=== PATIENT | female | born 1955 | race Caucasian/White ===

== ENCOUNTER 2016-05-29 14:25 | Outpatient (CLI) | payer OTHER | END 2016-05-29 14:26 | disposition home or self-care (01) | DX: R63.4 Abnormal weight loss (principal); R53.1 Weakness; R91.1 Solitary pulmonary nodule ==

== ENCOUNTER 2017-11-19 14:57 | Outpatient (CLI) | payer OTHER ==
--- NOTE | 2017-11-19 15:33 | XRAY Report ---
Reason: FOOT PAIN,LEFT Procedure Date: 11/19/2017 Accession Number: [id number] / [id number] Procedure: XR - Foot 3 View LT CPT Code: FULL RESULT: EXAM: LEFT FOOT RADIOGRAPHY EXAM DATE: 11/19/2017 03:16 PM. CLINICAL HISTORY: Foot pain, left. COMPARISON: 06/28/2014, radiographs of the contralateral foot for comparison. TECHNIQUE: 3 views. FINDINGS: There is partial fusion of the second and third metatarsals with the medial and middle cuneiforms respectively. This has resulted in pseudoarticulation in a fracture of the proximal second metatarsal with a sclerotic line suggestive of subacute nature. A fracture through the base of the third metatarsal appears acute. Qualitatively osteopenic. IMPRESSION: Fractures through at least the base of the second and third metatarsal in the setting of partial fusion and global osteopenia. [facility]
== END 2017-11-19 14:58 | disposition home or self-care (01) ==
LOC: DI 14:57
PROVIDERS: ATTEND Physician Assistant Medical
DX: S92.322A Displaced fracture of second metatarsal bone, left foot, initial encounter for closed fracture (principal); S92.332A Displaced fracture of third metatarsal bone, left foot, initial encounter for closed fracture; M85.872 Other specified disorders of bone density and structure, left ankle and foot

== ENCOUNTER 2017-11-27 13:06 | Outpatient (CLI) | payer OTHER ==
--- NOTE | 2017-11-28 09:33 | CT Report ---
Reason: PAIN IN LEFT FOOT Procedure Date: 11/27/2017 Accession Number: [id number] / [id number] Procedure: CT - Lower Extremity Left W/O CPT Code: FULL RESULT: EXAM: LEFT FOOT CT WITHOUT CONTRAST EXAM DATE: 11/27/2017 01:48 PM. CLINICAL HISTORY: Left foot fracture and pain. COMPARISON: FOOT 3 VIEW LT 11/19/2017. TECHNIQUE: Thin-section axial images were acquired of the foot without contrast. Post-processing: Coronal and sagittal reformats. Other: None. In accordance with CT protocol optimization, one or more of the following dose reduction techniques were utilized for this exam: automated exposure control, adjustment of mA and/or KV based on patient size, or use of iterative reconstructive technique. FINDINGS: Bones: There is moderate generalized osteopenia. There are fractures of the bases of the first, second, third and fourth metatarsals with intra-articular extension and no appreciable dislocation or subluxation. The Lisfranc joint is still normally aligned. There is no appreciable fracture of the cuneiforms, cuboid or navicular. The talus and calcaneum are intact. Joints: The joint spaces are preserved. No calcified loose bodies. No large effusion. Musculature: Normal. No fatty atrophy. Other: There is extensive edema of the midfoot and forefoot. IMPRESSION: 1. Moderate generalized osteopenia. 2. Fractures of the bases of the first, second, third and fourth metatarsals with intra-articular extension and no dislocation or subluxation. [facility]
== END 2017-11-27 13:07 | disposition home or self-care (01) ==
LOC: DI 13:06
PROVIDERS: ATTEND Orthopaedic Surgery Foot and Ankle Surgery
DX: S92.312A Displaced fracture of first metatarsal bone, left foot, initial encounter for closed fracture (principal); S92.322A Displaced fracture of second metatarsal bone, left foot, initial encounter for closed fracture; S92.332A Displaced fracture of third metatarsal bone, left foot, initial encounter for closed fracture; S92.342A Displaced fracture of fourth metatarsal bone, left foot, initial encounter for closed fracture

== ENCOUNTER 2018-03-06 08:00 | Outpatient (CLI) | payer OTHER ==
[2018-03-06 13:26] LABS: BASOPHILS % (AUTO) 0.3 %; EOSINOPHILS % (AUTO) 0.1 %; HGB - HEMOGLOBIN 12.8 g/dL (12.0-16.0); LYMPHOCYTES # (AUTO) 1.2 10^3/uL (1.5-3.5); LYMPHOCYTES % (AUTO) 16.4 %; MEAN CORPUSCULAR HGB CONC 35.6 g/dL (32.0-36.0); MEAN CORPUSCULAR VOLUME 109.5 fL (81.0-99.0); MEAN PLATELET VOLUME 8.5 fL (7.9-10.8); MONOCYTES # (AUTO) 0.4 10^3/uL (0.0-1.0); MONOCYTES % (AUTO) 5.9 %; NEUTROPHILS # (AUTO) 5.8 10^3/uL (1.5-6.6); NEUTROPHILS % (AUTO) 77.3 %; PLT - PLATELET COUNT 146 10^3/uL (130-450); RED BLOOD COUNT 3.28 10^6/uL (4.20-5.40); RED CELL DISTRIBUTION WIDTH 13.5 % (12.0-15.0); WHITE BLOOD COUNT 7.5 x10^3/uL (4.8-10.8)
[2018-03-06 13:32] LABS: ALBUMIN 3.9 g/dL (3.2-5.5); ALBUMIN/GLOBULIN RATIO 1.3 (1.0-2.2); BILIRUBIN,TOTAL 0.8 mg/dL (0.2-1.0); CALCIUM 9.3 mg/dL (8.5-10.3); CREATININE 0.7 mg/dL (0.4-1.0)
== END 2018-03-06 23:59 | disposition home or self-care (01) ==
LOC: LAB.R 08:00
PROVIDERS: ATTEND Physician Assistant Medical
DX: Z79.899 Other long term (current) drug therapy (principal); F41.8 Other specified anxiety disorders
CPT/HCPCS: 80053; 84443; 85025

== ENCOUNTER 2020-07-12 08:39 | Outpatient (CLI) | payer OTHER ==
[2020-07-12 14:32] LABS: BASOPHILS # (AUTO) 0.1 10^3/uL (0.0-0.1); BASOPHILS % (AUTO) 1.3 %; EOSINOPHILS # (AUTO) 0.3 10^3/uL (0.0-0.7); EOSINOPHILS % (AUTO) 5.8 %; HCT - HEMATOCRIT 42.5 % (37.0-47.0); HGB - HEMOGLOBIN 14.2 g/dL (12.0-16.0); LYMPHOCYTES # (AUTO) 2.2 10^3/uL (1.5-3.5); LYMPHOCYTES % (AUTO) 39.4 %; MEAN CORPUSCULAR HEMOGLOBIN 35.6 pg (27.0-31.0); MEAN CORPUSCULAR HGB CONC 33.4 g/dL (32.0-36.0); MEAN CORPUSCULAR VOLUME 106.5 fL (81.0-99.0); MEAN PLATELET VOLUME 10.7 fL (7.9-10.8); MONOCYTES # (AUTO) 0.4 10^3/uL (0.0-1.0); MONOCYTES % (AUTO) 7.7 %; NEUTROPHILS # (AUTO) 2.5 10^3/uL (1.5-6.6); NEUTROPHILS % (AUTO) 45.6 %; PLT - PLATELET COUNT 220 10^3/uL (130-450); RED BLOOD COUNT 3.99 10^6/uL (4.20-5.40); RED CELL DISTRIBUTION WIDTH 13.3 % (12.0-15.0); WHITE BLOOD COUNT 5.6 x10^3/uL (4.8-10.8)
[2020-07-12 14:51] LABS: ALBUMIN/GLOBULIN RATIO 1.3 (1.0-2.2); ALKALINE PHOSPHATASE 78 IU/L (42-121); ALT ALANINE AMINOTRANSFERASE 13 IU/L (10-60); AST ASPARTATE AMINOTRANSFERASE 30 IU/L (10-42); BILIRUBIN,TOTAL 0.7 mg/dL (0.2-1.0); BUN - BLOOD UREA NITROGEN 7 mg/dL (6-20); CALCIUM 9.1 mg/dL (8.5-10.3); CARBON DIOXIDE - CO2 25 mmol/L (21-32); CHLORIDE 103 mmol/L (101-111); CHOLESTEROL 247 mg/dL; CREATININE 0.7 mg/dL (0.4-1.0); GFR - MDRD 85 (>89); GLUCOSE 89 mg/dL (70-100); HDL CHOLESTEROL 81 mg/dL; LDL CHOLESTEROL,CALCULATED 111 mg/dL; LDL/HDL RATIO 1.4 (<4.4); SODIUM 140 mmol/L (135-145); TRIGLYCERIDES 273 mg/dL; VLDL CHOLESTEROL 55 mg/dL
[2020-07-12 14:59] LABS: MICROALBUM/CREATININE RATIO,UR 87.3 ug/mg (<30.0); MICROALBUMIN,URINE 5.5 mg/dL (0-300.0)
[2020-07-12 15:00] LABS: THYROID STIMULATING HORMONE 6.32 uIU/mL (0.34-5.60)
[2020-07-12 16:20] LABS: FREE T4 (FREE THYROXINE) 0.55 ng/dL (0.58-1.64)
[2020-07-12 20:45] LABS: ESTIMATED AVERAGE GLUCOSE 97 mg/dL (70-100)
== END 2020-07-12 08:40 | disposition home or self-care (01) ==
LOC: LAB.S 08:39
PROVIDERS: ATTEND Physician Assistant
DX: F41.1 Generalized anxiety disorder (principal); R73.9 Hyperglycemia, unspecified; Z79.899 Other long term (current) drug therapy; F33.9 Major depressive disorder, recurrent, unspecified; R26.81 Unsteadiness on feet
CPT/HCPCS: 36415; 80053; 80061; 82043; 82570; 83036; 83721; 84439; 84443; 85025

== ENCOUNTER 2022-02-26 07:16 | Outpatient (CLI) | payer OTHER ==
[2022-02-26] MEDS ORDERED: GADOBUTROL 10 MMOL/10 ML VIAL ONE (09:08)
[2022-02-26 10:09] LABS: CREATININE 0.9 mg/dL (0.4-1.0)
--- NOTE | 2022-02-26 14:49 | MRI Report ---
PROCEDURE: BRAIN W/WO INDICATIONS: Neurologic abnormalities CONTRAST: Gadavist 5.4ml TECHNIQUE: Noncontrast axial T1 spin echo, axial T2 fast spin echo, sagittal and axial FLAIR, coronal T2 fast sp in echo, axial gradient echo, axial diffusion and ADC through the brain. After the administration of contrast, axial and coronal T1 spin echo with fat saturation through the brain. COMPARISON: None. FINDINGS: Image quality: Excellent. CSF spaces: Basal cisterns are patent. No extra-axial fluid collections. Ventricles are normal in size and shape. Brain: No midline shift. No intracranial bleeds or masses. No abnormal intracranial enhancement. There is mild cerebral volume loss for age. There is moderate periventricular white matter chronic s mall vessel ischemic change. The brainstem appears normal. Diffusion-weighted images demonstrate no acute ischemic insults. No chronic ischemic insults. Normal intravascular flow voids are present. Skull and face: Calvarial marrow is normal in signal. Orbits appear normal. Sinuses: Sinuses and mastoids appear clear. IMPRESSION: No acute finding. Mild global cerebral volume loss and moderate chronic vascular ischemi c change. Reviewed by: uLke Hale MD on 02/26/2022 1:48 PM [facility] Approved by: Luke Hale MD on 02/26/2022 1:48 PM [facility] Station ID: [id number]
[2022-02-26] MEDS ORDERED: GADOBUTROL 10 MMOL/10 ML VIAL IVP ONE (18:43)
== END 2022-02-26 07:17 | disposition home or self-care (01) ==
LOC: LAB 07:16
PROVIDERS: ATTEND Nurse Practitioner
DX: R29.90 Unspecified symptoms and signs involving the nervous system (principal); R26.81 Unsteadiness on feet; Z79.899 Other long term (current) drug therapy; G31.89 Other specified degenerative diseases of nervous system; I67.82 Cerebral ischemia
CPT/HCPCS: 36415; 70553; 82565; A9585

== ENCOUNTER 2023-02-14 12:36 | Outpatient (CLI) | payer MEDICARE ==
[2023-02-14 14:58] LABS: BASOPHILS # (AUTO) 0.1 10^3/uL (0.0-0.1); EOSINOPHILS # (AUTO) 0.2 10^3/uL (0.0-0.7); EOSINOPHILS % (AUTO) 3.1 %; HCT - HEMATOCRIT 42.5 % (37.0-47.0); HGB - HEMOGLOBIN 14.4 g/dL (12.0-16.0); LYMPHOCYTES # (AUTO) 1.1 10^3/uL (1.5-3.5); LYMPHOCYTES % (AUTO) 22.4 %; MEAN CORPUSCULAR HEMOGLOBIN 31.7 pg (27.0-31.0); MEAN CORPUSCULAR HGB CONC 33.9 g/dL (32.0-36.0); MEAN CORPUSCULAR VOLUME 93.6 fL (81.0-99.0); MEAN PLATELET VOLUME 9.6 fL (7.9-10.8); MONOCYTES # (AUTO) 0.5 10^3/uL (0.0-1.0); MONOCYTES % (AUTO) 10.8 %; NEUTROPHILS % (AUTO) 62.5 %; PLT - PLATELET COUNT 277 10^3/uL (130-450); RED BLOOD COUNT 4.54 10^6/uL (4.20-5.40); RED CELL DISTRIBUTION WIDTH 11.9 % (12.0-15.0); WHITE BLOOD COUNT 4.8 x10^3/uL (4.8-10.8)
[2023-02-14 17:05] LABS: ALBUMIN 4.3 g/dL (3.2-5.5); ALBUMIN/GLOBULIN RATIO 1.5 (1.0-2.2); ALKALINE PHOSPHATASE 85 IU/L (42-121); ALT ALANINE AMINOTRANSFERASE 7 IU/L (10-60); AST ASPARTATE AMINOTRANSFERASE 15 IU/L (10-42); BILIRUBIN,TOTAL 0.4 mg/dL (0.2-1.0); BUN - BLOOD UREA NITROGEN 8 mg/dL (6-20); CALCIUM 10.8 mg/dL (8.5-10.3); CARBON DIOXIDE - CO2 28 mmol/L (21-32); CHLORIDE 92 mmol/L (101-111); CHOL/HDL RATIO 2.7 (<4.4); CHOLESTEROL 166 mg/dL; CREATININE 1.2 mg/dL (0.6-1.3); GFR - MDRD 45 (>89); GLUCOSE 107 mg/dL (74-104); HDL CHOLESTEROL 61 mg/dL; LDL CHOLESTEROL,CALCULATED 80 mg/dL; LDL/HDL RATIO 1.3 (<4.4); POTASSIUM 4.5 mmol/L (3.5-4.5); SODIUM 128 mmol/L (135-145); TOTAL PROTEIN 7.2 g/dL (6.4-8.9); TRIGLYCERIDES 124 mg/dL (48-352); VLDL CHOLESTEROL 25 mg/dL
[2023-02-14 17:46] LABS: THYROID STIMULATING HORMONE 7.62 uIU/mL (0.34-5.60)
== END 2023-02-14 12:37 | disposition home or self-care (01) ==
LOC: LAB.S 12:36
PROVIDERS: ATTEND Registered Nurse
DX: E78.2 Mixed hyperlipidemia (principal); Z79.899 Other long term (current) drug therapy; R94.6 Abnormal results of thyroid function studies; Z13.0 Encounter for screening for diseases of the blood and blood-forming organs and certain disorders involving the immune mechanism
CPT/HCPCS: 36415; 80053; 80061; 83721; 84439; 84443; 85025